=== PATIENT | female | born 1995 | race Caucasian/White ===

== ENCOUNTER 2017-01-01 00:51 | Emergency (ER) | payer BC ==
[~2017-01-01] VITALS: Ht 154.9 cm; Wt 82.8 kg
[~2017-01-01 00:51] MED LIST: ATR25 PO; DIAZ10TA PO; FLUO40CA8 PO; GABA-112 PO; OXYC1TAB3 PO; OXYM1TAB24 PO
[2017-01-01 01:18] VITALS: TEMP 36.8; Ht 154.9 cm; Wt 82.8 kg
[2017-01-01 01:40] LABS: BASO % 0.1 %; BASO ABS # 0.01 K/uL (0-0.2); COMPLETE YES; EOS % 0.1 %; HEMATOCRIT 40.9 % (37-47); IG% 0.8 %; LYMPH % 11.7 %; LYMPH ABS # 1.69 K/uL (1.2-3.4); MEAN CELL VOLUME 83.6 fL (80-100); MEAN CORPUSCULAR HEMOGLOBIN 27.8 pg (25-34); MEAN CORPUSCULAR HGB CONC 33.3 g/dl (32-36); MEAN PLATELET VOLUME 10.6 fL (7.4-10.4); MONO % 8.7 %; NEUT % 78.6 %; PLATELET COUNT 305 K/uL (130-400); RED BLOOD COUNT 4.89 M/uL (4.2-5.4); WHITE BLOOD COUNT 14.48 K/uL (4.8-10.8)
[2017-01-01 01:59] LABS: BUN/CREATININE RATIO 25.7 (10-20); CALCIUM 8.4 mg/dl (8.5-10.1); CREATININE 0.72 mg/dl (0.60-1.20); POTASSIUM 3.8 mmol/L (3.5-5.1)
[2017-01-01 02:09] LABS: BENZODIAZEPINE, URINE POS (NEG); COCAINE,URINE NEG (NEG); PHENCYCLIDINE, URINE NEG (NEG)
[2017-01-01 02:10] LABS: ACETAMINOPHEN < 2 ug/ml (10-30); ALB/GLOB RATIO 1.1 (0.9-2); THYROID STIMULATING HORMONE 2.41 uIu/ml (0.300-4.500)
--- NOTE | 2017-01-01 02:21 | EMERGENCY ROOM VISIT NOTE ---
History Report prepared by Galo: Graeme Singh Under the Supervision of: Dr. Chevy Sebastian D.O. First contact with patient: 00:49 Stated Complaint: OVERDOSE History of Present Illness The patient is a 21 year old female who presents to the Emergency Room with complaints of an intentional acute narcotic overdose around 2300 tonight. The patient has a prescription for narcotics secondary to endometriosis and other chronic pain issues. Tonight she had two pills instead of one with the intent of "feeling numb." The patient receives her prescription from [facility] pain management. She states that she wouldn't have cared if she . The patient has has been taking pain medications for a while, but notes that her prescription is changed around a lot. The patient also cut her wrists earlier tonight. She has a history of cutting. The patient denies alcohol or other drug use. She has never been admitted for mental health issues in the past. Source of History: patient Onset: 2300 tonight Position: other (global) Quality: other (intentional overdose) Timing: other (acute) Modifying Factors (Worsening): other (chronic pain) Review of Systems See HPI for pertinent positives & negatives. A total of 10 systems reviewed and were otherwise negative. Past Medical & Surgical Medical Problems: (1) Endometriosis Family History No pertinent family history Social History Smoking Status: Former Smoker Occupation Status: [employer] Current/Historical Medications Scheduled Fluoxetine Hcl (Prozac), MG PO DAILY Gabapentin (Neurontin), 100 MG PO HS Hydroxyzine HCl (Hydroxyzine HCl), 25 MG PO HS Oxymorphone Hcl (Opana Er (Crush Resistant), 10 MG PO BID Scheduled PRN Diazepam (Valium), 10 MG PO BID PRN for Anxiety Oxycodone Immediate Rel Tab (Roxicodone Ir), 15 MG PO Q6H PRN for Pain Allergies Coded Allergies: NUTS (Unverified Allergy, Severe, ANAPHYLAXIS, 01/01/17) Tree Nuts Leuprolide (Verified Adverse Reaction, Unknown, NUMBNESS TINGLING - SIDE EFFECT, 01/01/17) Physical Exam Vital Signs Date Time Temp Pulse Resp B/P Pulse Ox O2 Delivery O2 Flow Rate FiO2 01/01/17 02:35 73 20 116/70 95 Room Air 01/01/17 01:18 36.8 77 18 124/81 97 Room Air Physical Exam CONSTITUTIONAL/VITAL SIGNS: Reviewed / noted above. GENERAL: Non-toxic in appearance. INTEGUMENTARY: Warm, dry, and [place]. HEAD: Normocephalic. EYES: without scleral icterus or trauma. ENT/OROPHARYNX: clear and moist. LYMPHADENOPATHY/NECK: Is supple without lymphadenopathy or meningismus. RESPIRATORY: Lungs clear and equal. CARDIOVASCULAR: Regular rate and rhythm. GI/ABDOMEN: Soft and nontender. No organomegaly or pulsatile mass. No rebound or guarding. Normal bowel sounds. EXTREMITIES: Warm and well perfused. BACK: No CVA tenderness. NEUROLOGICAL: Intact without focal deficits. PSYCHIATRIC: Depressed affect. MUSCULOSKELETAL: Normally developed with good muscle tone. Medical Decision & Procedures Laboratory Results 01/01/17 01:19 Red Blood Count 4.89, Mean Corpuscular Volume 83.6, Mean Corpuscular Hemoglobin 27.8, Mean Corpuscular Hemoglobin Concent 33.3, Mean Platelet Volume 10.6, Neutrophils (%) (Auto) 78.6, Lymphocytes (%) (Auto) 11.7, Monocytes (%) (Auto) 8.7, Eosinophils (%) (Auto) 0.1, Basophils (%) (Auto) 0.1, Neutrophils # (Auto) 11.39, Lymphocytes # (Auto) 1.69, Monocytes # (Auto) 1.26, Eosinophils # (Auto) 0.02, Basophils # (Auto) 0.01 01/01/17 01:19 Test 01/01/17 01:00 01/01/17 01:19 Urine Opiates Screen POS (NEG) Urine Methadone, Qualitative NEG (NEG) Urine Barbiturates NEG (NEG) Urine Phencyclidine (PCP) Level NEG (NEG) Ur Amphetamine/Methamphetamine NEG (NEG) MDMA (Ecstasy) Screen NEG (NEG) Urine Benzodiazepines Screen POS (NEG) Urine Cocaine Metabolite NEG (NEG) Urine Marijuana (THC) NEG (NEG) White Blood Count 14.48 K/uL (4.8-10.8) Red Blood Count 4.89 M/uL (4.2-5.4) Hemoglobin 13.6 g/dL (12.0-16.0) Hematocrit 40.9 % (37-47) Mean Corpuscular Volume 83.6 fL (80-100) Mean Corpuscular Hemoglobin 27.8 pg (25-34) Mean Corpuscular Hemoglobin Concent 33.3 g/dl (32-36) Platelet Count 305 K/uL (130-400) Mean Platelet Volume 10.6 fL (7.4-10.4) Neutrophils (%) (Auto) 78.6 % Lymphocytes (%) (Auto) 11.7 % Monocytes (%) (Auto) 8.7 % Eosinophils (%) (Auto) 0.1 % Basophils (%) (Auto) 0.1 % Neutrophils # (Auto) 11.39 K/uL (1.4-6.5) Lymphocytes # (Auto) 1.69 K/uL (1.2-3.4) Monocytes # (Auto) 1.26 K/uL (0.11-0.59) Eosinophils # (Auto) 0.02 K/uL (0-0.5) Basophils # (Auto) 0.01 K/uL (0-0.2) RDW Standard Deviation 41.7 fL (36.4-46.3) RDW Coefficient of Variation 13.7 % (11.5-14.5) Immature Granulocyte % (Auto) 0.8 % Immature Granulocyte # (Auto) 0.11 K/uL (0.00-0.02) Anion Gap 9.0 mmol/L (3-11) Est Creatinine Clear Calc Drug Dose 118.5 ml/min Estimated GFR () 136.8 Estimated GFR (Non- 118.0 BUN/Creatinine Ratio 25.7 (10-20) Calcium Level 8.4 mg/dl (8.5-10.1) Total Bilirubin 0.2 mg/dl (0.2-1) Aspartate Amino Transf (AST/SGOT) 5 U/L (15-37) Alanine Aminotransferase (ALT/SGPT) 18 U/L (12-78) Alkaline Phosphatase 70 U/L (45-117) Total Protein 6.8 gm/dl (6.4-8.2) Albumin 3.6 gm/dl (3.4-5.0) Globulin 3.2 gm/dl (2.5-4.0) Albumin/Globulin Ratio 1.1 (0.9-2) Thyroid Stimulating Hormone (TSH) 2.410 uIu/ml (0.300-4.500) Salicylates Level < 1.7 mg/dl (2.8-20) Acetaminophen Level < 2 ug/ml (10-30) Ethyl Alcohol mg/dL < 3.0 mg/dl (0-3) Laboratory results as stated above per my review. ED Course 0102: Previous medical records were reviewed. The patient was evaluated in room A6. A complete history and physical examination was performed. 0300: The patient is being evaluated by [facility]. 0622: Oxycodone 5 mg IR PO. 0630: Prozac 40 mg PO. 0730: The patient was signed out to Dr. Dior at change of shift. Medical Decision Differential includes toxic ingestions, self-mutilation, suicidal ideation, suicide attempt, depression. This is a 21-year-old female who presents to the ED with a chief complaint of depression. The patient has a history of depression. She has chronic pain syndromes because her to use chronic pain medication. The patient states that around 11 PM tonight, she took an extra Percocet pill for the intention of feeling numb. She states that she would not care if she . She states that she is frustrated as nothing could be done for her condition. She states that she has interstitial cystitis and endometriosis. This causes chronic problems for her. Nothing seems to trigger her depression tonight other than the fact that she was out with friends and her friend was with a boyfriend and she became depressed because she would not have a normal lie. 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 Her physical exam was unremarkable. She has some minor superficial cuts to the bilateral wrists which occurred tonight. The patient does have a history of cutting a little she has not done this recently. She denies any other ingestions. Blood work was unremarkable. Tox screen is positive for opiates and benzos. Alcohol is negative. The patient is medically cleared for mental health evaluation. Will be signed out to Dr. Dior. Bed search underway at this time. Patient is 201 and [facility] recommends inpatient. Impression Primary Impression: Depression Additional Impression: Self-mutilation Scribe Attestation The scribe's documentation has been prepared under my direction and personally reviewed by me in its entirety. I confirm that the note above accurately reflects all work, treatment, procedures, and medical decision making performed by me. Departure Information Dispostion Still a Patient (Signed out to Dr. Dior at 0635.) Referrals Conrad, Scarlet C.,P.A. (PCP) Problem Qualifiers
[2017-01-01] MEDS ORDERED: OXYCODONE HCL IR 5 MG TAB (IMMEDIATE RELEASE) PO STA (06:22)
[2017-01-01] MEDS ORDERED: FLUOXETINE HCL 20 MG CAP PO ONE (06:30)
--- NOTE | 2017-01-01 10:42 | EMERGENCY ROOM VISIT NOTE ---
ED Visit Note Received patient in signout from Dr. Sebastian. History and physical verified by me. Patient has been accepted by [facility]. Patient willingly signed 201. She will be transferred via [facility]. Problem List Medical Problems: (1) Endometriosis Status: Chronic Current/Historical Medications Scheduled Fluoxetine Hcl (Prozac), MG PO DAILY Gabapentin (Neurontin), 100 MG PO HS Hydroxyzine HCl (Hydroxyzine HCl), 25 MG PO HS Oxymorphone Hcl (Opana Er (Crush Resistant), 10 MG PO BID Scheduled PRN Diazepam (Valium), 10 MG PO BID PRN for Anxiety Oxycodone Immediate Rel Tab (Roxicodone Ir), 15 MG PO Q6H PRN for Pain Allergies Coded Allergies: NUTS (Unverified Allergy, Severe, ANAPHYLAXIS, 01/01/17) Tree Nuts Leuprolide (Verified Adverse Reaction, Unknown, NUMBNESS [place]INGLING - SIDE EFFECT, 01/01/17) Vital Signs Date Time Temp Pulse Resp B/P Pulse Ox O2 Delivery O2 Flow Rate FiO2 01/01/17 06:54 76 16 106/76 97 Room Air 01/01/17 02:35 73 20 116/70 95 Room Air 01/01/17 01:18 36.8 77 18 124/81 97 Room Air Laboratory Results 01/01/17 01:19 Red Blood Count 4.89, Mean Corpuscular Volume 83.6, Mean Corpuscular Hemoglobin 27.8, Mean Corpuscular Hemoglobin Concent 33.3, Mean Platelet Volume 10.6, Neutrophils (%) (Auto) 78.6, Lymphocytes (%) (Auto) 11.7, Monocytes (%) (Auto) 8.7, Eosinophils (%) (Auto) 0.1, Basophils (%) (Auto) 0.1, Neutrophils # (Auto) 11.39, Lymphocytes # (Auto) 1.69, Monocytes # (Auto) 1.26, Eosinophils # (Auto) 0.02, Basophils # (Auto) 0.01 01/01/17 01:19 Test 01/01/17 01:00 01/01/17 01:19 Urine Opiates Screen POS (NEG) Urine Methadone, Qualitative NEG (NEG) Urine Barbiturates NEG (NEG) Urine Phencyclidine (PCP) Level NEG (NEG) Ur Amphetamine/Methamphetamine NEG (NEG) MDMA (Ecstasy) Screen NEG (NEG) Urine Benzodiazepines Screen POS (NEG) Urine Cocaine Metabolite NEG (NEG) Urine Marijuana (THC) NEG (NEG) White Blood Count 14.48 K/uL (4.8-10.8) Red Blood Count 4.89 M/uL (4.2-5.4) Hemoglobin 13.6 g/dL (12.0-16.0) Hematocrit 40.9 % (37-47) Mean Corpuscular Volume 83.6 fL (80-100) Mean Corpuscular Hemoglobin 27.8 pg (25-34) Mean Corpuscular Hemoglobin Concent 33.3 g/dl (32-36) Platelet Count 305 K/uL (130-400) Mean Platelet Volume 10.6 fL (7.4-10.4) Neutrophils (%) (Auto) 78.6 % Lymphocytes (%) (Auto) 11.7 % Monocytes (%) (Auto) 8.7 % Eosinophils (%) (Auto) 0.1 % Basophils (%) (Auto) 0.1 % Neutrophils # (Auto) 11.39 K/uL (1.4-6.5) Lymphocytes # (Auto) 1.69 K/uL (1.2-3.4) Monocytes # (Auto) 1.26 K/uL (0.11-0.59) Eosinophils # (Auto) 0.02 K/uL (0-0.5) Basophils # (Auto) 0.01 K/uL (0-0.2) RDW Standard Deviation 41.7 fL (36.4-46.3) RDW Coefficient of Variation 13.7 % (11.5-14.5) Immature Granulocyte % (Auto) 0.8 % Immature Granulocyte # (Auto) 0.11 K/uL (0.00-0.02) Anion Gap 9.0 mmol/L (3-11) Est Creatinine Clear Calc Drug Dose 118.5 ml/min Estimated GFR () 136.8 Estimated GFR (Non- 118.0 BUN/Creatinine Ratio 25.7 (10-20) Calcium Level 8.4 mg/dl (8.5-10.1) Total Bilirubin 0.2 mg/dl (0.2-1) Aspartate Amino Transf (AST/SGOT) 5 U/L (15-37) Alanine Aminotransferase (ALT/SGPT) 18 U/L (12-78) Alkaline Phosphatase 70 U/L (45-117) Total Protein 6.8 gm/dl (6.4-8.2) Albumin 3.6 gm/dl (3.4-5.0) Globulin 3.2 gm/dl (2.5-4.0) Albumin/Globulin Ratio 1.1 (0.9-2) Thyroid Stimulating Hormone (TSH) 2.410 uIu/ml (0.300-4.500) Salicylates Level < 1.7 mg/dl (2.8-20) Acetaminophen Level < 2 ug/ml (10-30) Ethyl Alcohol mg/dL < 3.0 mg/dl (0-3) Medications Administered Medications (Trade) Dose Ordered Sig/Sandy Route Start Time Stop Time Status Last Admin Dose Admin Fluoxetine HCl (Prozac Cap) 40 mg NOW ONCE PO 01/01/17 06:30 01/01/17 06:31 DC 01/01/17 06:53 40 MG Oxycodone HCl (Roxicodone Immediate Rel Tab) 5 mg NOW STAT PO 01/01/17 06:22 01/01/17 06:23 DC 01/01/17 06:53 5 MG Departure Information Impression Primary Impression: Depression Additional Impression: Self-mutilation Dispostion Still a Patient Referrals Scarlet Martines,P.A. (PCP) Patient Instructions [facility] Problem Qualifiers
[2017-01-01 12:24] VITALS: BP 129/80; PULSE 84; O2SAT 98
[2017-01-03 16:59] LABS: COD UR NEGATIVE NG/ML (CUTOFF=50); HYDROCOD UR NEGATIVE NG/ML (CUTOFF=50); HYDROMOR UR NEGATIVE NG/ML (CUTOFF=50); HYDROXYETHYLFLURAZEPAM CONF NEGATIVE NG/ML (CUTOFF=50); HYDROXYMIDAZOLAM NEGATIVE NG/ML (CUTOFF=50); HYDROXYTRIAZOLAM CONF NEGATIVE NG/ML (CUTOFF=50); MORPHINE UR NEGATIVE NG/ML (CUTOFF=50); NORHYDROCODONE CONF UR NEGATIVE NG/ML (CUTOFF=50); OXYMORPH UR 13400 NG/ML (CUTOFF=50); TEMAZEPAM CONF 295 NG/ML (CUTOFF=50)
[2017-01-15] MEDS ORDERED: GABA1CAP5 PO (08:21)
== END 2017-01-01 12:30 ==
LOC: EDBD 00:51 → C.EDA 00:52
DX: F32.9 Major depressive disorder, single episode, unspecified (principal); Z91.5 Personal history of self-harm; T40.601A Poisoning by unspecified narcotics, accidental (unintentional), initial encounter; N80.9 Endometriosis, unspecified; Z87.891 Personal history of nicotine dependence